=== PATIENT | female | born 1980 | race Caucasian/White ===

== ENCOUNTER → 2016-11-13 | Outpatient (CLI) | payer MEDICAID ==
[~2016-11-13] MED LIST: COLACE-DPS100 MG PO; MOTRIN-DPS800 MG PO; NIPPLECREAM TP; PRENATAL VIT1 TAB PO
== END | disposition home or self-care (01) ==
LOC: RAD.S 09:49
DX: O44.42 Low lying placenta NOS or without hemorrhage, second trimester (principal); Z3A.26 26 weeks gestation of pregnancy

== ENCOUNTER 2017-02-11 21:15 | Inpatient (IN) | payer BC, MEDICAID ==
[~2017-02-11] VITALS: Ht 144.8 cm; Wt 76.7 kg
--- NOTE | ~2017-02-11 | FD ---
ADMIT: 02/11/2017 RM/LOC: 227 [facility] MR#: [id number] [address] MELI VALLEOJ ADINA [address] [place] [address] Final Diagnosis SEX: F AGE: 36 : 1980 ADMISSION DATE: 02/11/2017 DISCHARGE DATE: 02/13/2017 FINAL DIAGNOSIS: 1. A 36-year-old 7 para 6-1-0-6 status post spontaneous vaginal delivery at 40 weeks 1 day. 2. Advanced maternal age. 3. Group B Streptococcus positive status post antibiotic prophylaxis. 4. History of Herpes zoster in . PROCEDURE: Spontaneous vaginal delivery. Keiko Wylie MD Resident / Nicolle Rincon MD / elsy JOB #: [id number] CC: Nicolle Rincon MD, Attending Physician Nicolle Rincon MD, Family Physician
[2017-02-14] MEDS ORDERED: PRENATAL VIT1 TAB PO (06:58)
[2017-02-14] MEDS ORDERED: COLACE-DPS100 MG PO (06:58)
[2017-02-14] MEDS ORDERED: MOTRIN-DPS800 MG PO (06:58)
[2017-02-14] MEDS ORDERED: NIPPLECREAM TP (06:59)
--- NOTE | 2017-02-14 09:04 | OR ---
ADMIT: 02/11/2017 RM/LOC: 227 [facility] MR#: [id number] [address] ADINA GARCIA [address] [place] [address] Operative/Delivery Room Report SEX: F AGE: 36 : 1980 SURGERY DATE: 02/12/2017 SURGEON: Nicolle Rincon MD PROCEDURE: Spontaneous vaginal delivery. PREPROCEDURE DIAGNOSES: 1. G7, P5-1-0-5 with an intrauterine at 40 weeks, two days via 2nd trimester ultrasound presented with regular contractions. 2. Advanced maternal age. 3. GBS positive. 4. Category II heart rate tracing prior to the procedure. POSTPROCEDURE DIAGNOSES: 1. A 36-year-old, G7, P6-1-0-6, status post spontaneous vaginal delivery at 40 weeks two days. 2. Spontaneous vaginal delivery. 3. Advanced maternal age. 4. GBS positive, status post adequate antibiotic treatment. 5. Lactating mother. FINDINGS: Viable male with a weight of 3370 g and Apgars of 8 and 9 in straight OA presentation. Normal placental anatomy with a three vessel cord. Cord gas with a pH of 7.27 and a base excess of 3.1. SPECIMENS: Removed cord blood and cord arterial gas, placenta. HOSPITAL COURSE AND PROCEDURE: This is a 36-year-old, G7, P5-1-0-5 with an intrauterine at 40 weeks 2 days via 2nd trimester ultrasound, who [facility] on February 11, 2017, with chief complaint of regular contractions. Contractions persisted and the patient was initially making cervical change. GBS antibiotic prophylaxis was initiated. Labor augmentation was performed with Pitocin. AROM was performed at 12:30. Prior to her rupture of membranes, the patient had a category I heart rate tracing. Following AROM, the patient's heart rate tracing began to have early and variable decels. Variable decels occurred with contractions and heart rate dropped to the 80s with spontaneous resolution at time of contraction resolution. Pitocin was discontinued, and IV fluid bolus was initiated and supplemental oxygen was given to the mother. Due to persistent variable prolonged decels, the decision was made to place an IUPC for amnio infusion. 500 mL of warmed normal saline was infused. The heart rate tracing improved. Category II strip remained present through the time of delivery with variable decels to the 90s. The patient ultimately progressed to complete. The patient ultimately underwent a spontaneous vaginal delivery. The head was brought to the perineum, which was intact. The anterior and posterior shoulders delivered without difficulty and the body followed. The was vigorous and crying, was placed on the mother's chest. Bulb suction was not performed. After delayed cord clamping, the cord was clamped and cut. Pitocin was administered ADMIT: 02/11/2017 RM/LOC: 227 [facility] MR#: [id number] [address] [place] [id number] [facility] [address] [place] [address] Operative/Delivery Room Report SEX: F AGE: 36 : 1980 per protocol. Cord gas was collected. Cord blood was collected. The placenta delivered spontaneously and was intact. Three-vessel cord was present. The vagina and perineum were inspected for lacerations. No lacerations were present. The fundus is firm below the umbilicus. All tissues were found to be hemostatic. All counts were correct x2. EBL: 350 mL. The patient tolerated the procedure well with no known complications. The patient and infant were stable in mother's room following the delivery. Dr. Nicolle Rincon was present for the entire procedure. Keiko Wylie MD Resident / Nicolle Rincon MD / sarai JOB #: [id number] CC: Nicolle Rincon, Attending Physician Nicolle Rincon, Family Physician
--- NOTE | 2017-03-05 09:38 | HP ---
ADMIT: 02/11/2017 RM/LOC: 227 [facility] MR#: [id number] [place], [place] [address] ADINA GARCIA [address] [place] [address] History and Physical SEX: F AGE: 36 : 1980 DATE OF SERVICE:02/11/17 CHIEF COMPLAINT: Contractions for two days. HISTORY OF PRESENT ILLNESS: This is a 36-year-old, G7, P5-1-0-5 with an intrauterine at 40 weeks 2 days via second trimester ultrasound, who presents to the [facility] with chief complaint of regular contractions. She had reported that the contractions have been present for approximately two days and were increasing in frequency and intensity. She denies leaking of fluid or vaginal bleeding at the time of presentation. She reports normal movement. Her has been complicated by advanced maternal age, grand multiparity, second trimester dating, and GBS positive, and herpes zoster. The patient denies headache, changes in vision, chest pain, shortness of breath. Minimal swelling in bilateral lower extremities reported by patient. PAST MEDICAL HISTORY: High-risk patient for TB-negative QuantiFERON. Denied a history of hypertension or diabetes. PAST SURGICAL HISTORY: No known surgical history. MEDICATIONS: vitamin. ALLERGIES: NO KNOWN MEDICAL ALLERGIES. SOCIAL HISTORY: She is single. Father of baby is involved. She denies tobacco, alcohol, or recreational drug use. FAMILY HISTORY: Negative family history for hypertension, diabetes, congenital anomalies. REVIEW OF SYSTEMS: The patient denies headache, changes in vision, chest pain, or shortness of breath. No nausea, vomiting, diarrhea, or constipation. PHYSICAL EXAMINATION: VITAL SIGNS: Blood pressure is 105/62, pulse is 60, respiratory rate 16, temperature 98.5, oxygen saturation is 96% on room air. GENERAL: The patient is alert and oriented. This encounter is difficult due to language barrier. HEART: Regular rate and rhythm. LUNGS: Clear to auscultation bilaterally. ABDOMEN: Gravid, nontender, nondistended. Estimated weight is 3200 g. EXTREMITIES: Trace edema in bilateral lower extremities. Sterile vaginal exam, 3, 20, -3. heart rate monitoring baseline appears to be 130 with moderate variability, positive accels, no decels. Contractions occurring every 7 and 9 minutes. LABS: Blood type is O positive. GBS positive. Hemoglobin 11.6. QuantiFERON gold TB test negative. one-hour glucose tolerance test is 94. UA ADMIT: 02/11/2017 RM/LOC: 227 [facility] MR#: [id number] [address] MELITHI VALLEJO [id number] [place] [address] History and Physical SEX: F AGE: 36 : 1980 is negative for glucose, protein, and signs of infection. Hepatitis B negative. RPR negative. Rubella immune. Varicella immune. Chlamydia and gonorrhea negative. ASSESSMENT AND PLAN: This is a 36-year-old, G7, P5-1-0-5 with an intrauterine at 40 weeks and 2 days via second trimester ultrasound, who presents to the Birthing Center with contractions. 1. Given the patient is a grand multiparity, recommend admission cervical changes made within the first hour of observation. Plan is to admit to Birthing Center and start antibiotic prophylaxis for group B strep. Consent is obtained. Blood type is O positive. We will obtain CBC upon admission. 2. Advanced maternal age and concern for double bowel on ultrasound. Reportedly, the patient was scheduled to meet with [facility] in January of 2017. We will request these records from the care office. 3. Group B streptococcus positive. We will start antibiotic prophylaxis. 4. heart tones reassuring category I. Continue to monitor. 5. Maternal well being. The patient's pain is currently well controlled. We will reassess frequently and treat if needed. 6. The patient was discussed with attending physician, Dr. Jabier Camp, who agrees with the above assessment and plan. Keiko Wylie MD Resident / Jabier Camp MD / leticial JOB #: [id number] CC: Nicolle Rincon, Attending Physician Nicolle Rincon, Family Physician
== END 2017-02-13 16:45 | disposition home or self-care (01) | DRG 775 ==
LOC: BC 21:15 → 2LDRP 21:22
PROC: 3E0E37Z Introduction of Electrolytic and Water Balance Substance into Products of Conception, Percutaneous Approach (ICD-10-PCS; principal; 2017-02-12)
PROC: 3E033VJ Introduction of Other Hormone into Peripheral Vein, Percutaneous Approach (ICD-10-PCS; principal; 2017-02-12)
PROC: 4A1H7CZ Monitoring of Products of Conception, Cardiac Rate, Via Natural or Artificial Opening (ICD-10-PCS; principal; 2017-02-12)
PROC: 10H07YZ Insertion of Other Device into Products of Conception, Via Natural or Artificial Opening (ICD-10-PCS; principal; 2017-02-12)
PROC: 10907ZC Drainage of Amniotic Fluid, Therapeutic from Products of Conception, Via Natural or Artificial Opening (ICD-10-PCS; principal; 2017-02-12)
PROC: 10E0XZZ Delivery of Products of Conception, External Approach (ICD-10-PCS; principal; 2017-02-12)
DX: O48.0 Post-term pregnancy (principal); O99.824 Streptococcus B carrier state complicating childbirth; O76 Abnormality in fetal heart rate and rhythm complicating labor and delivery; Z3A.40 40 weeks gestation of pregnancy; Z37.0 Single live birth